=== PATIENT | female | born 1980 | race African-American/Black ===

== ENCOUNTER 2017-06-14 06:33 | Emergency (ER) | payer OTHER | END 2017-06-14 07:22 | disposition home or self-care (01) | LOC: E/R 06:33 | DX: M79.601 Pain in right arm (principal); E11.9 Type 2 diabetes mellitus without complications; Z79.01 Long term (current) use of anticoagulants; Z79.4 Long term (current) use of insulin; Z87.891 Personal history of nicotine dependence | CPT/HCPCS: 99282; Z7502 ==